=== PATIENT | female | born 1975 | race Caucasian/White ===

== ENCOUNTER → 2020-12-28 | Outpatient (CLI) | payer BC, OTHER ==
[~2020-12-28] MED LIST: COLACE 100MG C100 MG PO; IBUPROFEN600 MG PO; LATANOPROST 0.7.5 ML OU; LEVOCETIRIZINE D5 MG PO; PERCOCET 5-3251 EACH PO; PROGESTERONE200 MG PO; QUETIAPINE FUMA25 MG PO; WELLBUTRIN XL300 M1 PO
== END ==
LOC: EXRD 12-27 10:15
DX: R10.11 Right upper quadrant pain (principal); K80.20 Calculus of gallbladder without cholecystitis without obstruction
CPT/HCPCS: 76705

== ENCOUNTER → 2021-01-18 | Day surgery (SDC) | payer BC, OTHER ==
[~2021-01-18] MED LIST changes: +CLARITIN10 MG PO; +ONDANSETRON ODT4 MG SL
== END | disposition home or self-care (01) ==
LOC: OR 07:19
DX: K80.10 Calculus of gallbladder with chronic cholecystitis without obstruction (principal); J45.909 Unspecified asthma, uncomplicated; K21.9 Gastro-esophageal reflux disease without esophagitis; F41.9 Anxiety disorder, unspecified; F32.A Depression, unspecified; Z87.891 Personal history of nicotine dependence; Z88.5 Allergy status to narcotic agent; Z88.8 Allergy status to other drugs, medicaments and biological substances; Z79.899 Other long term (current) drug therapy; Z90.710 Acquired absence of both cervix and uterus
CPT/HCPCS: J0690; J1170; J2001; J2250; J2704; J2710; J3010; J7030; J7120